=== PATIENT | female | born 1960 | race Caucasian/White ===

== ENCOUNTER 2017-04-15 09:09 | Outpatient (CLI) | payer OTHER ==
--- NOTE | 2017-04-15 10:13 | Diagnostic Imaging Report ---
ATIF LEVY [facility] [address] [facility] [address] [address] Report Submission Date: Apr 15, 2017 9:49:29 AM DIRECTOR OF CLINICAL EDUCATION Patient Study Name: GARY ADLER Date: Apr 15, 2017 9:31:31 AM DIRECTOR OF CLINICAL EDUCATION Modality Type: CR Gender: F Description: UPPER EXTREMITY : 56 Institution: [facility] Physician: ATIF LEVY Examination: Plain film wrist History: Wrist discomfort Comparison exams: None available Findings: 4 views the left wrist demonstrates osteopenia. Articular degenerative changes - most pronounced at the 1st carpal metacarpal articulation. No fracture. No dislocation. No soft tissue abnormality. Impression: Osteopenia and degenerative changes. No acute appearing osseous abnormality. Electronically signed on Apr 15, 2017 9:49:29 AM DIRECTOR OF CLINICAL EDUCATION by: Umang TRIVEDI
== END 2017-04-15 09:10 ==
LOC: RAD 09:09
PROVIDERS: ATTEND Family Medicine
DX: M25.532 Pain in left wrist (principal)
CPT/HCPCS: 73110

== ENCOUNTER 2018-04-05 10:28 | Emergency (ER) | payer OTHER ==
[2018-04-05] MEDS ORDERED: KETOROLAC TROMETHAMINE 60 MG/2 ML VIAL IM ONE (11:31)
--- NOTE | 2018-04-05 11:34 | ED Physician Documentation ---
Fall - HISTORIAN Historian: patient - HPI Stated Complaint: L knee pain Chief Complaint: Fall Onset: just prior to arrival Where: work Context: tripped, slipped Associated Symptoms:: no loss of consciousness Further Comments: yes (57 year old female patient present after a fall from standing at work. Patient tripped and landed on left knee; c/o pain, worse with walking and weight bearing.) - ROS CONST: no problems NEURO: denies: dizziness, anxiety, depression, other MS/SKIN/LYMPH: denies: weakness, numbness, neck pain, back pain, ankle swelling, leg swelling, rash, other EYES/ENT: none CVS/RESP: none GI/: denies: problems urinating, nausea, vomiting, other - PAST HX Past History: diabetes Type 2, other (HTN) Allergies/Adverse Reactions: Allergies Allergy/AdvReac Type Severity Reaction Status Date / Time Penicillins AdvReac Unknown Hives Verified 04/05/18 10:49 sulconazole AdvReac Unknown Hives Verified 04/05/18 10:49 Home Medications: Ambulatory Orders Medication Instructions Recorded Aspirin [Kevin] 81 mg PO DAILY 04/05/18 Glimepiride [Amaryl] 4 mg PO BID 04/05/18 Hydrochlorothiazide 25 mg PO D 04/05/18 Metformin HCl 1,000 mg PO BID 04/05/18 Sitagliptin Phosphate [Januvia] 100 mg PO D 04/05/18 - SOCIAL HX Smoking History: cigarettes - FAMILY HX Family History: denies: none - VITAL SIGNS Vital Signs: Vital Signs Temp Pulse Resp BP Pulse Ox 97.9 F 100 H 18 172/93 98 04/05/18 10:44 04/05/18 10:44 04/05/18 10:44 04/05/18 10:44 04/05/18 10:44 - REVIEWED ASSESSMENTS Nursing Assessment Reviewed: Yes Vitals Reviewed: Yes Progress - Progress Progress: Reviewed plan of care and discharge instructions. Verbalized understanding. ED Results Lab/Radiology - Radiology Radiology Impressions: Examination: Plain film left knee History: Slipped on ice this morning landed on the front of Left knee. small scrape and bruising on front of knee. no previous injury or surgery. patient shielded for exam. (Hx) Findings: 3 views of the left knee demonstrates normal cortical margins. No fracture. No dislocation. No joint effusion. Patellar spurs. No soft tissue irregularity. Impression: No acute osseous abnormality Electronically signed on Apr 05, 2018 11:20:33 AM BROWNFIELD REDEVELOPMENT SPECIALIST by: Umang Lyons - Orders Orders: ED Orders Category Date Time Status Dru Wrap Affected Extremity 1T Care 04/05/18 11:31 Ordered KNEE 3 VIEWS [RAD] Stat Exams 04/05/18 10:42 Ordered Ketorolac Tromethamine [Toradol] Med 04/05/18 11:31 Once 60 mg IM NOW ONE Fall Physical Exam - Physical Exam General Appearance: mild distress Eye: LUCERO Resp/CVS: chest non-tender, no ecchymosis, breath sounds nml, no resp. distress, heart sounds nml Neuro: oriented x3, CN's nml as tested, sensation nml, motor nml, mood/affect nml, audio recording engineer nml, reflexes nml, audio recording engineer symmetrical Skin: color nml, no rash, nml palp., dry Extremities: atraumatic, pelvis stable, hips non-tender, no pedal edema, nml ROM, nml color/temp, other (left knee with abrasion and 5 cm area of ecchymosis; no laxity, negative drawer, pain worse with flexion) - Marline Coma Score Eyes Open: Spontaneous Speech: Oriented Motor: Obeys Commands Discharge Clincal Impression: Fall Qualifiers: Encounter type: initial encounter Qualified Code(s): W19.XXXA - Unspecified fall, initial encounter Knee pain, left Qualifiers: Chronicity: acute Qualified Code(s): M25.562 - Pain in left knee Referrals: Darline Hill MD [Primary Care Provider] - 2 Days Additional Instructions: SPRAINS / BACK PAIN Ice Rest Elevation You may use Tylenol every 4hour as needed for pain. Limit your dose to less than 4 G per day. Do not take ibuprofen, aleve, naproxen or any other NSAID while you are on toradol (ketoralac) You may want to try massage, over the counter lidocaine patches, biofreeze, veronica salomon or aspercream . If you are unable to bear weight and continuing to have significant pain on day 3-4; see your PCP for re-evaluation and additional xrays. Condition: Stable Disposition: 01 HOME, SELF-CARE Decision to Admit: NO Decision Time: 11:34
[2018-04-05 12:11] VITALS: BP 154/81
--- NOTE | 2018-04-05 13:14 | Diagnostic Imaging Report ---
SAEID ROTHMAN (GROUP LEADER [employer]ISHING) - ER [facility] [address] [facility] [address] [address] Report Submission Date: Apr 05, 2018 11:20:33 AM CHANGE NUMBER OPERATOR Patient Study Name: GARY ADLER Date: Apr 05, 2018 10:44:15 AM CHANGE NUMBER OPERATOR Modality Type: DX Gender: F Description: LOWER EXTREMITY : 56 Institution: [facility] Physician: SAEID ROTHMAN (GROUP LEADER [employer]) - ER Examination: Plain film left knee History: Slipped on ice this morning landed on the front of Left knee. small scrape and bruising on front of knee. no previous injury or surgery. patient shielded for exam. (Hx) Findings: 3 views of the left knee demonstrates normal cortical margins. No fracture. No dislocation. No joint effusion. Patellar spurs. No soft tissue irregularity. Impression: No acute osseous abnormality Electronically signed on Apr 05, 2018 11:20:33 AM CHANGE NUMBER OPERATOR by: Umang TRIVEDI
== END 2018-04-05 12:09 | disposition home or self-care (01) ==
LOC: ED 10:28
DX: S80.212A Abrasion, left knee, initial encounter (principal); M25.562 Pain in left knee; W01.0XXA Fall on same level from slipping, tripping and stumbling without subsequent striking against object, initial encounter; Y93.9 Activity, unspecified; Y92.9 Unspecified place or not applicable; Y99.0 Civilian activity done for income or pay
CPT/HCPCS: 29530; 73562; 96372; 99282; 99284; J1885